=== PATIENT | female | born 1975 | race Caucasian/White ===

== ENCOUNTER 2021-03-23 22:58 | Emergency (ER) | payer MEDICARE ==
[~2021-03-23] VITALS: Ht 162.6 cm; Wt 81.7 kg
[2021-03-23] MEDS ORDERED: LYRICA25 MG PO (23:17)
[2021-03-24] MEDS ORDERED: PEPCID40 MG PO (00:08)
[2021-03-24] MEDS ORDERED: PREDNISONE 10 M10 M1 PO (00:08)
[2021-03-24 00:32] VITALS: BP 145/78
== END 2021-03-24 00:33 | disposition home or self-care (01) ==
LOC: M.ERS 22:58
DX: T78.1XXA Other adverse food reactions, not elsewhere classified, initial encounter (principal); L50.9 Urticaria, unspecified; Z88.8 Allergy status to other drugs, medicaments and biological substances; Z91.018 Allergy to other foods; Z90.710 Acquired absence of both cervix and uterus; Z79.899 Other long term (current) drug therapy; Z88.1 Allergy status to other antibiotic agents; Z88.5 Allergy status to narcotic agent; X58.XXXA Exposure to other specified factors, initial encounter